=== PATIENT | female | born 1980 | race Caucasian/White ===

== ENCOUNTER → 2018-05-21 | Outpatient (CLI) | payer OTHER ==
[~2018-05-21] MED LIST: METFORMIN HCL500 MG PO; NEURONTIN 300300 M1 PO; TRAMADOL 50 MG50 MG PO; ZOLOFT50 MG PO
== END ==
LOC: M.ULTRA 13:00
DX: R92.2 Inconclusive mammogram (principal); R59.9 Enlarged lymph nodes, unspecified

== ENCOUNTER 2018-06-01 11:17 | Emergency (ER) | payer OTHER ==
[~2018-06-01] VITALS: Ht 165.1 cm; Wt 103.4 kg
[2018-06-01 11:38] LABS: URINE BILIRUBIN NEGATIVE (Negative); URINE BLOOD NEGATIVE (Negative); URINE CLARITY CLEAR; URINE COLOR YELLOW; URINE GLUCOSE-RANDOM NEGATIVE (Negative); URINE KETONES NEGATIVE (Negative); URINE LEUKOCYTES-REFLEX TRACE (Negative); URINE NITRITE-REFLEX NEGATIVE (Negative); URINE PROTEIN NEGATIVE (Negative); URINE UROBILINOGEN 0.2 E.U./dl (0.2-1.0)
[2018-06-01] MEDS ORDERED: BACTROBAN CREAM30 G1 TOP (11:42)
[2018-06-01] MEDS ORDERED: CLONAZEPAM 0.50.5 M1 PO (11:42)
[2018-06-01] MEDS ORDERED: PEPCID20 MG PO (11:43)
[2018-06-01 11:45] LABS: BACTERIA-REFLEX 1-9 Few /HPF (None Seen); CASTS None Seen /LPF (None Seen); CRYSTALS None Seen /LPF (None Seen); MUCUS 0-3 Light strn/LPF (None Seen); SQUAMOUS 0-3 Few /LPF (0-3); URINE RBC 0-2 Rare /HPF (0-2); URINE WBC-REFLEX 0-5 Rare /HPF (0-5)
[2018-06-01] MEDS ORDERED: MACROBID 100 M100 M1 PO (12:24)
[2018-06-01] MEDS ORDERED: FLOMAX0.4 MG PO (12:24)
[2018-06-01 13:10] VITALS: BP 135/84
== END 2018-06-01 13:11 | disposition home or self-care (01) ==
LOC: M.ERS 11:17
PROVIDERS: Family Medicine
DX: N12 Tubulo-interstitial nephritis, not specified as acute or chronic (principal); Z90.49 Acquired absence of other specified parts of digestive tract

== ENCOUNTER → 2018-06-05 | Outpatient (CLI) | payer OTHER ==
[~2018-06-05] MED LIST changes: +BACTROBAN CREAM30 G1 TOP; +CLONAZEPAM 0.50.5 M1 PO; +FLOMAX0.4 MG PO; +MACROBID 100 M100 M1 PO; +PEPCID20 MG PO
== END ==
LOC: M.CT 10:00
DX: N83.202 Unspecified ovarian cyst, left side (principal)